=== PATIENT | male | born 1970 | race African-American/Black ===

== ENCOUNTER 2020-12-26 13:31 | Emergency (ER) | payer MEDICAID ==
[~2020-12-26] VITALS: Ht 188 cm; Wt 97.5 kg
[2020-12-26 15:26] VITALS: BP 143/77
== END 2020-12-26 15:38 | disposition home or self-care (01) ==
LOC: ER 13:31
DX: M17.12 Unilateral primary osteoarthritis, left knee (principal)
CPT/HCPCS: 73562